=== PATIENT | female | born 1945 | race Two or more races ===

== ENCOUNTER 2023-11-14 11:38 | Outpatient (CLI) | payer OTHER | END 2023-11-14 11:42 | disposition home or self-care (01) | LOC: SONOGRAMA 11:38 | PROVIDERS: ATTEND Pathology Anatomic Pathology & Clinical Pathology | DX: D34 Benign neoplasm of thyroid gland (principal); E07.89 Other specified disorders of thyroid; E06.3 Autoimmune thyroiditis; E03.8 Other specified hypothyroidism ==